=== PATIENT | female | born 1995 | race Caucasian/White ===

== ENCOUNTER 2016-12-25 11:46 | Emergency (ER) | payer BC, OTHER ==
[~2016-12-25] VITALS: Ht 160 cm; Wt 83.0 kg
[2016-12-25 12:00] VITALS: BP 115/80
[2016-12-25] MEDS ORDERED: LORazepam 2 MG/ML (ATIVAN) 1 ML VIAL IV ONE (12:15)
[2016-12-25] MEDS ORDERED: KETOROLAC 30 MG/ML (TORADOL) 1 ML VIAL IV ONE (12:15)
[2016-12-25] MEDS ORDERED: SODIUM CHLORIDE FLUSH 10 ML SYR IV PRN (12:30)
[2016-12-25] MEDS ORDERED: SODIUM CHLORIDE FLUSH 3 ML SYR IV PRN (12:30)
[2016-12-25 12:40] LABS: BASOPHILS % (AUTO) 0 % (0-2); EOSINOPHILS % (AUTO) 0 % (0-4); LYMPHOCYTES # (AUTO) 3.1 X10^3; MEAN CORPUSCULAR HEMOGLOBIN 27.9 PG (26.0-34.0); MEAN CORPUSCULAR HGB CONC 33.8 g/dL (31.0-37.0); MEAN CORPUSCULAR VOLUME 83 FL (80-100); MONOCYTES # (AUTO) 0.6 X10^3; MONOCYTES % (AUTO) 6 % (3-11); NEUTROPHILS # (AUTO) 5.9 X10^3; NEUTROPHILS % (AUTO) 61 % (51-67); PLATELET COUNT 383 10^3uL (150-450); WHITE BLOOD COUNT 9.64 10^3uL (4.0-11.0)
[2016-12-25 12:46] LABS: ANION GAP 15.3 MEQ/L (3-15)
== END 2016-12-25 15:17 | disposition home or self-care (01) ==
LOC: ED 11:50
DX: M94.0 Chondrocostal junction syndrome [Tietze] (principal); F41.9 Anxiety disorder, unspecified
CPT/HCPCS: 36415; 80048; 85025; 96361; 96374; 96375; 99284; J1885; J2060; J7030; 99283

== ENCOUNTER 2017-02-27 00:38 | Emergency (ER) | payer OTHER, BC ==
[~2017-02-27] VITALS: Ht 160 cm; Wt 84.5 kg
[~2017-02-27 00:38] MED LIST: BUPR300T43 PO; NAPR550T PO; QUET300T3 PO
--- OUTSIDE RECORDS SUMMARY | 2017-02-27 00:42 | XMS REPORT | Continuity of Care Document ---
Author Author [facility] Address Unknown Phone Unavailable Care Team Providers Care Speech Therapy Assistant Name Role Phone HIRA MYERS MD PCP [phone] Insurance Providers Payer Name Policy Number Subscriber Name Relationship [facility] [id number] [employer] [place] R 18 Self / Same As Patient [employer] [id number] [employer] [place] R 18 Self / Same As Patient Advance Directives Directive Response Recorded Date/Time Advanced Directives No 12/25/16 12:00pm Chief Complaint and Reason for Visit Chief Complaint Psychological Complaint Reason for Visit [id number] Anxiety Problems Active Problems Medical Problem Onset Date Status Anxiety Unknown Acute Costochondritis, acute Unknown Acute Medications Current Home Medications Medication Dose Units Route Directions Days/Qty Instructions Start Date Naproxen Sodium 550 Mg 550 Mg ORAL Ttwice A Day 14 12/25/16 Past Home Medications Medication Directions Ordered Status Bupropion Hcl 300 Mg Tab, 300 Mg Oral Daily 03/19/12 Discontinued Quetiapine Fumarate 300 Mg Tab.er.24h, 300 Mg Oral Bedtime 03/19/12 Discontinued Social History Query Response Start Date Stop Date Smoking Status Never smoker Hospital Discharge Instructions No hospital discharge instructions. Plan of Care Discharge Date 12/25/16 3:17pm Disposition 01 HOME OR SELF-CARE Condition at Discharge Stable Instructions/Education Provided Costochondritis (DC) Forms Provided Return to Work Prescriptions See Medication Section Referrals HIRA MYERS MD - Additional Instructions/Education Home to rest and sleep allow her body to heal. Avoid actions at cause pain and discomfort. Analgesic cream massage, heat or icepack massage can help. Take all medications as directed Some of your test results may not be complete prior to your leaving the Emergency Department. The Emergency Department is not authorized to give test results over the phone. Please contact the doctor's office listed in this packet of information for your final results. Follow up with your primary care physician or return to the Emergency Department for worsening or worrisome symptoms. * Emergency Department phone number: [phone], x [phone] MEDICAL RECORD If you need copies of your X-rays, call [phone]. If you need copies of your medical record, including lab results, a signed authorization for release of records will be required. A telephone call for release of Health Information is not allowed. BILLING Billing can sometimes be confusing and frustrating. To help avoid confusion in the future, please take a moment to acquaint yourself with the billing parties for services. [employer] Emergency Room Services [facility] Physician Services [facility] X-rays [facility] Patients will receive bills for services from the appropriate provider. If you have any questions about your [facility] bill, our staff will be happy to assist you. Please call [phone], and ask for the billing department. THANK YOU for choosing [facility] as your emergency care provider! Care Plan and Goals ~~Discharge Care Plan~~ Problem: Costochondritis Goal: No pain, return to normal activities Instructions: Medications as directed. Rest at home. Follow up with your PCP as needed. Functional Status No functional status results. Allergies, Adverse Reactions, Alerts No known allergies. Immunizations No immunization records. Vital Signs Acute Vital Signs Vital Response Date/Time Temperature (Fahrenheit) 97.8 12/25/2016 12:00pm Pulse 70 bpm 12/25/2016 12:00pm Respirations 24 12/25/2016 12:00pm Height 5 ft 3 in Weight 182 lb Body Mass Index 32.0 kg/m^2 Results Laboratory Results Test Name Result Units Flags Reference Collection Date/Time Result Date/ Time Comments White Blood Count 9.64 10^3uL 4.0-11.0 12/25/2016 12:30pm 12/25/2016 12 :48pm Red Blood Count 4.94 10^6uL 4.00-5.00 12/25/2016 12:30pm 12/25/2016 12: 48pm Hemoglobin 13.8 g/dL 12.0-15.5 12/25/2016 12:30pm 12/25/2016 12:48pm Hematocrit 40.80 % 35.00-45.00 12/25/2016 12:30pm 12/25/2016 12:48pm Mean Corpuscular Volume 83 FL 80-100 12/25/2016 12:30pm 12/25/2016 12: 48pm Mean Corpuscular Hemoglobin 27.9 PG 26.0-34.0 12/25/2016 12:30pm 2016 12:48pm Mean Corpuscular Hemoglobin Concent 33.8 g/dL 31.0-37.0 12/25/2016 12: 30pm 12/25/2016 12:48pm Red Cell Distribution Width 12.6 % 11.8-15.6 12/25/2016 12:30pm 2016 12:48pm Platelet Count 383 10^3uL 150-450 12/25/2016 12:30pm 12/25/2016 12: 48pm Mean Platelet Volume 10.0 FL H 6.0-9.5 12/25/2016 12:30pm 12/25/2016 12: 48pm Neutrophils (%) (Auto) 61 % 51-67 12/25/2016 12:30pm 12/25/2016 12: 48pm Lymphocytes (%) (Auto) 32 % 20-46 12/25/2016 12:30pm 12/25/2016 12: 48pm Monocytes (%) (Auto) 6 % 3-11 12/25/2016 12:30pm 12/25/2016 12:48pm Eosinophils (%) (Auto) 0 % 0-4 12/25/2016 12:30pm 12/25/2016 12:48pm Basophils (%) (Auto) 0 % 0-2 12/25/2016 12:30pm 12/25/2016 12:48pm Neutrophils # (Auto) 5.9 X10^3 12/25/2016 12:30pm 12/25/2016 12:48pm Lymphocytes # (Auto) 3.1 X10^3 12/25/2016 12:30pm 12/25/2016 12:48pm Monocytes # (Auto) 0.6 X10^3 12/25/2016 12:30pm 12/25/2016 12:48pm Eosinophils # (Auto) 0.0 10^3uL 12/25/2016 12:30pm 12/25/2016 12: 48pm Basophils # (Auto) 0.0 10^3uL 12/25/2016 12:30pm 12/25/2016 12:48pm Sodium Level 143 mmol/L 135-150 12/25/2016 12:30pm 12/25/2016 12:47pm Potassium Level 3.7 mmol/L 3.5-5.1 12/25/2016 12:30pm 12/25/2016 12: 47pm Chloride Level 108 mmol/L 98-108 12/25/2016 12:30pm 12/25/2016 12:47pm Carbon Dioxide Level 23 mmol/L 22-29 12/25/2016 12:30pm 12/25/2016 12: 47pm Anion Gap 15.3 MEQ/L H 3-15 12/25/2016 12:30pm 12/25/2016 12:47pm Blood Urea Nitrogen 18 mg/dL 7-18 12/25/2016 12:30pm 12/25/2016 12: 47pm Creatinine 0.68 mg/dL 0.6-1.2 12/25/2016 12:30pm 12/25/2016 12:47pm BUN/Creatinine Ratio 26 H 10-20 12/25/2016 12:30pm 12/25/2016 12:47pm Estimat Glomerular Filtration Rate 133.5 12/25/2016 12:30pm 2016 12:47pm Estimated GFR (Non- 110.3 12/25/2016 12:30pm 2016 12:47pm Glucose Level 96 mg/dL 70-110 12/25/2016 12:30pm 12/25/2016 12:47pm Calcium Level 9.8 mg/dL 8.8-10.8 12/25/2016 12:30pm 12/25/2016 12:47pm Procedures No known history of procedures. Encounters Encounter Location Arrival/Admit Date Discharge/Depart Date Attending Provider Departed Emergency Room [facility] 12/25/16 11:50am 12/25/16 3:17pm BARAK GOINS MD Recent Diagnosis
[2017-02-27] MEDS ORDERED: FLUORESCEIN (FLUOR-I-STRIPS) 1 MG STRIP OS ONE (01:00)
[2017-02-27] MEDS ORDERED: TETRACAINE 0.5% OPHTHALMIC SOLUTION 4 ML BTL OS ONE (01:00)
[2017-02-27] MEDS ORDERED: EYE WASH 120 ML BTL ONE (01:07)
[2017-02-27] MEDS ORDERED: EYE WASH 120 ML BTL OS ONE (01:10)
[2017-02-27 01:26] VITALS: BP 137/62
== END 2017-02-27 01:26 | disposition home or self-care (01) ==
LOC: ED 00:48
DX: T15.92XA Foreign body on external eye, part unspecified, left eye, initial encounter (principal); W20.8XXA Other cause of strike by thrown, projected or falling object, initial encounter; Y93.E3 Activity, vacuuming; Y92.63 Factory as the place of occurrence of the external cause; Y99.0 Civilian activity done for income or pay
CPT/HCPCS: 99282